=== PATIENT | male | born 1975 | race Two or more races ===

== ENCOUNTER 2025-10-29 09:41 | Emergency (ER) | payer MEDICAID, SELFPAY ==
[2025-10-29 09:54] VITALS: BP 182/88; BP 186/89; PULSE 66; RESP 17; TEMP 36.8; O2SAT 99; BMI 22.8
--- NOTE | 2025-10-29 10:00 | EDNOTE_ITS ---
ED Abdominal Pain RME/HPI General Chief Complaint: Abdominal Pain Stated complaint: LEFT ABD/FLANK PAIN RAD DOWN LEFT LEG Time seen by provider: 10/29/25 10:00 Arrival date/time: 10/29/25 09:41 RME / HPI RME / HPI narrative: See [facility] for Dr. Anna's HPI Documentation. Related Data Home Medications ?Medication ?Instructions ?Recorded ?Confirmed lisinopril 5 mg tablet 5 mg PO QDAY 12/15/23 Previous Rx's ?Medication ?Instructions ?Recorded acetaminophen 300 mg-codeine 30 mg 2 tab PO Q8H PRN pa in #20 tabs 10/29/25 tablet Allergies Allergy/AdvReac Type Severity Reaction Status Date / Time Penicillins Allergy Hives Verified 08/05/24 14:39 Review of Systems Review of Systems Systems Reviewed: All systems reviewed, normal except as documented Past Medical History Past Medical History CARDIAC: Positive Cardiac Disorders and Hypertension GASTROINTESTINAL: Positive Gastrointestinal Disorders, Hemorrhoids and Gastroesophageal Reflux Disease GENITOURINARY: Positive Genitourinary Disorders and Renal Disease (per pt but unk name) ENDOCRINE: Positive Endocrine Disorders and Diabetes Mellitus Type 2 (hx of. 0 meds now) PSYCHO/SOCIAL: Positive Anxiety OTHER HISTORY: Positive Chicken Pox, Measles and Mumps Social History SUBSTANCE USE: marijuana ED Exam Narrative Physical exam: See [facility] for Dr. Anna's Physical Exam Documentation. Course Quality Measures none Orders Category Date Time Status CT abdomen pelvis wo con Stat Exams 10/29/25 10:[address] lumbar spine wo con Stat Exams 10/29/25 10:00 Completed Bilirubin,Direct Stat Lab 10/29/25 10:00 Completed CBC Stat Lab 10/29/25 10:00 Completed CMP [Comprehensive Metabolic Panel] Stat Lab 10/29/25 10:00 Completed Magnesium Stat Lab 10/29/25 10:00 Completed UA, C/S IF [Urinalysis, C/S if Indicated] Stat Lab 10/29/25 10:49 Completed cloNIDine HCL [Catapres] Med 10/29/25 10:42 Discontinued 0.2 mg PO X1 ONE Vital Signs Vital signs: Vital Signs Temperature 98.2 F 10/29/25 09:54 Pulse Rate 66 10/29/25 09:54 Respiratory Rate 17 10/29/25 09:54 Blood Pressure 186/89 H 10/29/25 09:54 Pulse Oximetry (%) 99 10/29/25 09:54 Oxygen Delivery Method Room Air 10/29/25 09:54 Abdominal Pain MDM MDM Narrative MDM Narrative:: This section includes all my notes and documentations, including HPI, PE, and ED course. Gerson Anna MD HPI: 50 y/o male with Hx of Type II DM, HTN, and GERD here with left-sided pain in the flank area. Has difficulty localizing the pain. Uncertain if the pain starts in the back or abdomen. Pain seems to radiate into the left groin and left hip and left leg. No paralysis. No numbness or tingling. No loss of control of the bladder or bowels. No saddle numbness. No other complaints. ROS: All negative except as documented in HPI. Physical Exam: General: Alert and oriented. No acute distress when remaining still. High BP noted. Eyes: Conjunctivae and lids clear. ENT: No nasal congestion. Neck: Supple. Heart: RRR. Lungs: No respiratory distress. Good air movement. No rhonchi, wheezing, rales. Abdomen: Soft and nontender. Normal bowel sounds. No distension. No rebound or guarding. Back: Equivocal lumbar spinal tenderness. Skin: Warm and dry. Neuro: Alert and oriented X 3. No peripheral motor deficits. I reviewed all diagnostic test results: My review of the lumbar spine CT report is: L5-S1 3 mm central lumbar disc bulge contiguous with both the right and left S1 nerve roots. My review of the abdominal CT report is: NAD. Blood tests and urine tests unremarkable. At this point, diagnoses include: Sciatica Elevated BP Treatment here included: Oral Clonidine 0.2 mg Recommended a trial of outpatient treatment. Based on my best medical judgment, made decision no further evaluation or treatment indicated at this time. Patient understands and agrees to the discharge instructions customized and printed, see below. Instrucciones de joe del Dr. Anna: --Tras la evaluaci?n, se trata de ci?ascencion (tambi?n conocida macie radiculopat?a lumbar o estenosis sr), donde un nervio comprimido est? causando terry s?ntomas. --Esta afecci?n es dif?cil de tratar porque los analg?sicos comunes no son muy efectivos para el dolor neurop?bryn. --A pesar del dolor, intente retomar terry tareas y actividades habituales. La inactividad es perjudicial para esta afecci?n, y la actividad no la empeorar?. Use un maliha?n para ayudarse a ponerse de pie y caminar. --Use ibuprofeno, paracetamol con code?na y parches de lidoca?na seg?n sea necesario. No espere que el dolor desaparezca por completo; el objetivo es aliviarlo. --Al descansar y dormir, intente la posici?n (con las rodillas hacia el pecho e inclin?ndose hacia adelante). [place] puede aliviar la presi?n sobre el nervio y reducir el dolor. --Aplique hielo o calor si le resulta beneficioso. ?Consulte con un m?dico privado (fuera de la jeny de emergencias) el 31/10/2025 para recibir atenci?n adicional. Solicite revisar todos los resultados de las pruebas y los informes radiol?gicos oficiales para asegurarse de recibir todo el seguimiento y la monitorizaci?n necesarios. Pida que le ayuden a obtener atenci?n m?dica que no est? disponible aqu? en la jeny de emergencias, macie resonancias magn?alireza, fisioterapia y derivaciones a especialistas. Algunas personas optan por la cirug?a para esta afecci?n. Aniceto necesita reuben resonancia magn?ascencion para confirmar el diagn?stico y evaluar la gravedad a fin de recibir los mejores tratamientos. ?Busque atenci?n m?dica inmediata si presenta par?lisis en el pie, p?rdida del control de la vejiga o los intestinos, entumecimiento en la tricia del perineo (entumecimiento anal) o si tiene cualquier otra inquietud. Discharge Instructions from Dr. Anna: --After evaluation, we are dealing with Sciatica (same as Lumbar Radiculopathy or Spinal Stenosis) where pinched nerve is causing your symptoms.? --This condition is difficult because normal pain medications don?t work very well on nerve pain. --Despite the pain, try to resume your normal chores and activities.? Because inactivity is terrible for this condition.? And activity won?t make your condition worse.? Use a cane of stick to help stand and walk.? --Use Ibuprofen and Tylenol with codeine and lidocaine patches as needed.? Don't expect the pain to go away completely, hoping to take the edge off.?? --When resting and sleeping, try position (with your knees to your chest and bending forward).? This can take some pressure off the nerve and help your pain. --Apply ice or heat if helpful. --See a private doctor (outside the ER) on 10/31/2025 for further care. Ask to review all test results and official radiology reports, to make sure you receive all necessary follow-ups and monitoring. Ask to help you get more care not available here in the ER.? Such as MRI imaging, physical therapy, and referrals to see specialists.? Some choose to have surgery for this condition. But you need to have MRI imaging to confirm the diagnosis and assess the severity to get the best treatments. --Seek immediate medical care with paralysis in your foot, losing control of your bladder or bowels, saddle numbness (anal numbness), or with any concerns.?? Gerson Anna MD Patient data External records reviewed:: [facility] previous records (No prior ED records available for review.) Clinical information provided by:: patient Social determinants that could affect healthcare access:: substance use (Marijuana) Patient has the following chronic illnesses:: Hypertension, Hemorrhoids, Gastroesophageal Reflux Disease, Renal Disease, Diabetes Mellitus Type 2 How is presenting disease/condition affected by chronic disease/condition?: exacerbated by Evaluation data The following diagnostics were reviewed and interpreted by me:: lab results and radiology exam(s) Lab and/or radiology exams considered but not ordered:: None Interpretation Summary: I reviewed all diagnostic test results: My review of the lumbar spine CT report is: L5-S1 3 mm central lumbar disc bulge contiguous with both the right and left S1 nerve roots. My review of the abdominal CT report is: NAD. Blood tests and urine tests unremarkable. Medications / Prescriptions Medications or Prescriptions considered but not ordered:: None Medication administrations:: Medication Administration History Discontinued Medications Clonidine (Clonidine Hcl 0.1 Mg Tablet) 0.2 mg PO X1 ONE Stop: 10/29/25 10:43 Last Admin: 10/29/25 11:15 Dose: 0.2 mg Documented By: LESLEY Oral Clonidine 0.2 mg Consultations Consultation(s) initiated? (list below): No Diagnosis Differential diagnosis abdominal pain: acute appendicitis, calculus of kidney, constipation, diverticulitis, gastroenteritis, pancreatitis and small bowel obstruction Most likely diagnosis given after review of the tests above:: Sciatica Elevated BP Admission Indicated Admission indicated?: not indicated Explain why admission is indicated or not indicated:: With significant improvement and no condition needing emergent intervention, there was no indication for admission. Admission Request Was there a request for admission?: No Disposition Plan Disposition Plan: Discharge Discharge Attestation Discharge Attestation: The patient and all family members were given an opportunity to ask questions and understood the discharge instructions. Discharge instructions specifically effects, indications for sooner follow up or return to the emergency department, and the expected course of current diagnosis. Patient condition: Stable Discharge Plan Plan Patient Disposition: HOME (Self Care) Prescriptions/Referrals Prescriptions/Med Rec: New acetaminophen-codeine 300-30 mg tablet 2 tab PO Q8H MDD 6 PRN (Reason: pain) Qty: 20 0RF No Action lisinopril 5 mg tablet 5 mg PO QDAY Referrals: Johnnie Ceballos MD [Primary Care Provider, Family Practice] - In 1 week Problem List Clinical Impression: Sciatica Patient/Caregiver Discharge Instructions Discharge Activity: activity as tolerated Education Materials: ED Sciatica Additional Instructions: Instrucciones de joe del Dr. Anna: --Tras la evaluaci?n, se trata de ci?ascencion (tambi?n conocida macie radiculopat?a lumbar o estenosis sr), donde un nervio comprimido est? causando terry s?ntomas. --Esta afecci?n es dif?cil de tratar porque los analg?sicos comunes no son muy efectivos para el dolor neurop?bryn. --A pesar del dolor, intente retomar terry tareas y actividades habituales. La inactividad es perjudicial para esta afecci?n, y la actividad no la empeorar?. Use un maliha?n para ayudarse a ponerse de pie y caminar. --Use ibuprofeno, paracetamol con code?na y parches de lidoca?na seg?n sea necesario. No espere que el dolor desaparezca por completo; el objetivo es aliviarlo. --Al descansar y dormir, intente la posici?n (con las rodillas hacia el pecho e inclin?ndose hacia adelante). [place] puede aliviar la presi?n sobre el nervio y reducir el dolor. --Aplique hielo o calor si le resulta beneficioso. ?Consulte con un m?dico privado (fuera de la jeny de emergencias) el 31/10/2025 para recibir atenci?n adicional. Solicite revisar todos los resultados de las pruebas y los informes radiol?gicos oficiales para asegurarse de recibir todo el seguimiento y la monitorizaci?n necesarios. Pida que le ayuden a obtener atenci?n m?dica que no est? disponible aqu? en la jeny de emergencias, macie resonancias magn?alireza, fisioterapia y derivaciones a especialistas. Algunas personas optan por la cirug?a para esta afecci?n. Aniceto necesita reuben resonancia magn?ascencion para confirmar el diagn?stico y evaluar la gravedad a fin de recibir los mejores tratamientos. ?Busque atenci?n m?dica inmediata si presenta par?lisis en el pie, p?rdida del control de la vejiga o los intestinos, entumecimiento en la tricia del perineo (entumecimiento anal) o si tiene cualquier otra inquietud. Discharge Instructions from Dr. Anna: --After evaluation, we are dealing with Sciatica (same as Lumbar Radiculopathy or Spinal Stenosis) where pinched nerve is causing your symptoms.? --This condition is difficult because normal pain medications don?t work very well on nerve pain. --Despite the pain, try to resume your normal chores and activities.? Because inactivity is terrible for this condition.? And activity won?t make your condition worse.? Use a cane of stick to help stand and walk.? --Use Ibuprofen and Tylenol with codeine and lidocaine patches as needed.? Don't expect the pain to go away completely, hoping to take the edge off.?? --When resting and sleeping, try position (with your knees to your chest and bending forward).? This can take some pressure off the nerve and help your pain. --Apply ice or heat if helpful. --See a private doctor (outside the ER) on 10/31/2025 for further care. Ask to review all test results and official radiology reports, to make sure you receive all necessary follow-ups and monitoring. Ask to help you get more care not available here in the ER.? Such as MRI imaging, physical therapy, and referrals to see specialists.? Some choose to have surgery for this condition. But you need to have MRI imaging to confirm the diagnosis and assess the severity to get the best treatments. --Seek immediate medical care with paralysis in your foot, losing control of your bladder or bowels, saddle numbness (anal numbness), or with any concerns.?? Print Language: Belarusian Stand Alone Forms: Sabrina Award Info., Patient Portal Info Letter
--- NOTE | 2025-10-29 10:00 | XR_ITS ---
Examination: CT lumbar spine, without contrast. 2-D sagittal reconstructions. 2-D coronal reconstructions. 3-D reconstructions. Date and time of exam: October 29, 2025, 11:00 a.m. INDICATIONS: Low back pain radiating down the left leg beginning 2 days ago CTDI: vol (mGy): 15.2 DLP: (mGycm): 509 Technique: Multiple 1.25 mm axial sections of the lumbar spine have been obtained. 2-D sagittal and coronal reconstructions have been obtained. 3-D reconstructions have been obtained. Low dose protocols were performed. One or more of the following dose reduction techniques were used; automated exposure control, adjustment of the mA and/or KV according to patient size, use of iterative reconstruction technique. Findings: Mild osteopenia. No lumbar fracture. Lumbar pedicles laminae transverse and posterior spinous processes intact No spondylolisthesis L5-S1 3 mm central lumbar disc bulge, axial image 99, contiguous with the right and left S1 nerve roots L4-L5 no disc protrusion L3-L4 no disc protrusion L2-L3 no disc protrusion L1-L2 no disc protrusion IMPRESSION: No lumbar fracture L5-S1 3 mm central lumbar disc bulge contiguous with both the right and left S1 nerve roots Consider elective MRI lumbar spine without contrast follow-up
--- NOTE | 2025-10-29 10:00 | XR_ITS ---
Examination: CT abdomen and pelvis without contrast. Coronal 3-D reconstructions. Sagittal 2-D reconstructions. Date and time of exam: October 29, 2025, 10:56 a.m. INDICATIONS: Left-sided abdominal pain beginning several days ago CTDI: vol (mGy): 5.96 DLP: (mGycm): 316 Technique: Axial images of the abdomen have been obtained, 3 mm slice thickness Intravenous contrast material has not been administered. Low dose protocols were performed. One or more of the following dose reduction techniques were used; automated exposure control, adjustment of the mA and/or KV according to patient size, use of iterative reconstruction technique. Findings: No visualized liver or splenic lesion No gallstones No pancreatic or adrenal mass No renal or ureteral calculi, no hydronephrosis Aorta normal size Normal appendix Colonic diverticulosis, no diverticulitis Normal seminal vesicles Mild prostatomegaly Urinary bladder wall thickening up to 6 mm Moderate osteopenia IMPRESSION: Negative for pancreatitis No renal or ureteral calculi, no hydronephrosis Normal appendix Colonic diverticulosis, no diverticulitis. Mild prostatomegaly. Mild urinary bladder wall thickening, consider cystitis
[2025-10-29 10:45] LABS: Basophils # (Auto) 0.0 Thou/mm3 (0.0-0.2); Basophils % (Auto) 1 % (0-2.5); Eosinophils # (Auto) 0.2 Thou/mm3 (0.0-0.5); Eosinophils % (Auto) 2 % (0-10); Hematocrit 42.5 % (41.0-53.0); Hemoglobin 13.8 g/dL (13.5-16.0); Immature Granulocytes Auto 0.02 Thou/mm3 (0.00-0.00); Lymphocytes # (Auto) 2.4 Thou/mm3 (1.0-4.8); Lymphocytes % (Auto) 32 % (10-50); Mean Corpuscular HGB Conc 32.5 g/dl (31.0-37.0); Mean Corpuscular Hemoglobin 27.9 pg (25.0-35.0); Mean Corpuscular Volume 86 fL (80-100); Monocytes # (Auto) 0.5 Thou/mm3 (0.0-0.8); Monocytes % (Auto) 7 % (0-12); Neutrophils # (Auto) 4.3 Thou/mm3 (1.8-7.7); Neutrophils % (Auto) 58 % (37-80); Nucleated Red Blood Cell # 0.00 Thou/mm3 (0.00-0.00); Nucleated Red Blood Cell % 0 /100 WBC (0); Platelet Count 353 Thou/mm3 (140-440); RDW Standard Deviation 40.3 fL (35.1-43.9); Red Blood Count 4.94 Miln/mm3 (4.50-5.90); White Blood Count 7.5 Thou/mm3 (3.8-10.6)
[2025-10-29 10:57] LABS: Collection Type, Urine Clean Catch; Squamous Epithelial Cell,Urine 0 /hpf (0-5)
[2025-10-29 10:59] LABS: Alanine Aminotransferase 17 U/L (10-49); Albumin, Serum 5.1 gm/dL (3.5-5.0); Albumin/Globulin Ratio 1.6 (1.2-2.2); Alkaline Phosphatase 78 U/L (46-116); Anion Gap 11 (7-16); Aspartate Amino Transferase 20 U/L (0-34); BUN/Creatinine Ratio 11 Ratio (12-20); Bilirubin,Direct 0.2 mg/dL (0.0-0.3); Bilirubin,Total 0.7 mg/dL (0.3-1.2); Blood Urea Nitrogen 9 mg/dL (9-23); Calcium 10.0 mg/dL (8.3-10.6); Calcium (Corrected) 10.0 mg/dL (8.5-10.1); Carbon Dioxide 29.5 mMol/L (20.0-31.0); Chloride 103 mMol/L (98-107); Creatinine (Component) 0.8 mg/dL (0.6-1.3); Estimated Creatinine Clearance 94.0 mL/min (>60); Globulin 3.1 gm/dL (2.3-3.5); Glucose 151 mg/dL (74-106); Magnesium 1.8 mg/dL (1.6-2.6); Osmolality,Calculated 286 (275-295); Potassium 3.9 mMol/L (3.4-5.1); Sodium 143 mMol/L (136-145); Total Protein 8.2 gm/dL (5.7-8.2); eGFR > 60 See Note
[2025-10-29 11:15] VITALS: BP 171/87; PULSE 65
[2025-10-29 11:29] LABS: Bilirubin,Urine Negative (Negative); Blood,Urine 2+ (Negative); Clarity,Urine Clear (Clear/Hazy); Culture Indicated,Urine Not Indicated; Glucose, Urine Negative (Negative); Ketones,Urine Negative (Negative); Leukocyte Esterase,Urine Negative (Negative); Nitrite,Urine Negative (Negative); PH,Urine 6.5 (5.0-7.0); Protein,Urine Trace (Neg - Trace); RBC,Urine 1 /hpf (0-3); Specific Gravity,Urine 1.005 (1.001-1.035); Urobilinogen,Urine Negative mg/dL (0.0-1.0); WBC,Urine < 1 /hpf (0-5)
[2025-10-29 11:30] LABS: Color,Urine Lt-Yellow (Lt Yel-Yel)
== END 2025-10-29 14:33 | disposition home or self-care (01) ==
PROVIDERS: Emergency Provider Emergency Medicine; PCP Family Medicine
DX: M51.17 Intervertebral disc disorders with radiculopathy, lumbosacral region (principal); R10.9 Unspecified abdominal pain
CPT/HCPCS: 36415; 72131; 74176; 80053; 81001; 82248; 83735; 85025; 99283; A9270